=== PATIENT | male | born 1950 | race Caucasian/White ===

== ENCOUNTER 2020-04-11 17:52 | Emergency (ER) | payer MEDICARE ==
[2020-04-11] MEDS ORDERED: Diphtheria,Pertussis(Acell),Tetanus Vaccine 0.5 ML Syringe IM ONE (19:10)
[2020-04-11] MEDS ORDERED: Bacitracin Oint 1 GM U/D Packet TOP ONE (19:27)
--- NOTE | 2020-04-11 19:32 | EDM.PDOC ---
ED HPI GENERAL MEDICAL PROBLEM - General Chief Complaint: Laceration Stated Complaint: CUT TO TOP OF LT HAND Time Seen by Provider: 04/11/20 19:07 Source of Information: Reports: Patient - History of Present Illness INITIAL COMMENTS - FREE TEXT/NARRATIVE: Maurizio is a 69-year-old male presenting to the ED for evaluation of a laceration to his left index finger. The patient was cutting a zip tie underneath his truck using a razor box machine operator. The box machine operator slipped causing him to incise the medial aspect of the proximal index on the left hand. The laceration is about 3.3 cm long. It spared the extensor and flexor tendon, neurovascular bundle, or other deep structures. The patient is out of date for his tetanus status. Location: Reports: Upper Extremity, Left - Related Data Allergies Allergy/AdvReac Type Severity Reaction Status Date / Time adalimumab [From Humira] Allergy Chest Verified 04/11/20 18:30 Tightness apremilast [From Otezla] Allergy Diarrhea Verified 04/11/20 18:30 ibrutinib [From Imbruvica] Allergy Chest Verified 04/11/20 18:30 Tightness Penicillins Allergy Hives Verified 04/11/20 18:30 Home Meds: Home Meds Methotrexate 1 injection SUBCUT WEEKLY 04/11/20 [History] Metoprolol Succinate 1 tab PO DAILY 04/11/20 [History] Rasagiline Mesylate 1 tab PO DAILY 04/11/20 [History] amLODIPine Besylate [Amlodipine Besylate] 1 tab PO DAILY 04/11/20 [History] atorvaSTATin [Lipitor] 1 tab PO DAILY 04/11/20 [History] predniSONE [Prednisone] 1 tab PO DAILY 04/11/20 [History] Past Medical History Musculoskeletal History: Reports: RA Neurological History: Reports: Parkinson's, Seizure Endocrine/Metabolic History: Reports: Diabetes, Type II - Past Surgical History Musculoskeletal Surgical History: Reports: Knee Replacement Social & Family History - Tobacco Use Tobacco Use Status *Q: Never Tobacco User ED ROS GENERAL - Review of Systems Review Of Systems: See Below Constitutional: Reports: No Symptoms HEENT: Reports: No Symptoms Respiratory: Reports: No Symptoms Cardiovascular: Reports: No Symptoms Endocrine: Reports: No Symptoms GI/Abdominal: Reports: No Symptoms : Reports: No Symptoms Musculoskeletal: Reports: Hand Pain (3.3 cm laceration on the left proximal medial index finger) Skin: Reports: Wound (Laceration on the proximal left medial index finger) Neurological: Reports: No Symptoms Psychiatric: Reports: No Symptoms Hematologic/Lymphatic: Reports: No Symptoms Immunologic: Reports: No Symptoms ED EXAM, SKIN/RASH Exam: See Below Exam Limited By: No Limitations General Appearance: Alert, WD/WN, No Apparent Distress Peripheral Pulses: 2+: Radial (L) Extremities: Normal Range of Motion, Non-Tender, No Pedal Edema, Normal Capillary Refill, Other (3.3 cm laceration on the left proximal medial index finger with good distal sensation and capillary refill.) Neurological: Alert, Oriented, Normal Cognition, No Motor/Sensory Deficits Psychiatric: Normal Affect, Normal Mood ED SKIN PROCEDURES - Laceration/Wound Repair Left Medial Proximal Digit - 2nd (Index) Appearance: Subcutaneous, Clean Distal NVT: Neuro & Vascular Intact, No Tendon Injury Anesthetic Type: Local Local Anesthesia - Lidocaine (Xylocaine): 1% Plain Local Anesthetic Volume: 2cc Skin Prep: Other (Sterile water) Exploration/Debridement/Repair: Wound Explored, In a Bloodless Field, Explored to Base Closed with: Sutures Lac/Wound length In cm: 3.3 Suture Size: 4-0 # of Sutures: 6 Suture Type: Interrupted Drain Placement: No Sterile Dressing Applied: Nurse Tetanus Status Addressed: Yes Complications: No Course - Vital Signs Last Recorded V/S: Last Vital Signs Temp 35.8 C L 04/11/20 18:42 Pulse 77 04/11/20 18:42 Resp 16 04/11/20 18:42 BP 183/94 H 04/11/20 18:42 Pulse Ox 95 04/11/20 18:42 - Orders/Labs/Meds Orders: Active Orders 24 hr Category Date Time Status Vaccines to be Administered [RC] PER UNIT ROUTINE Care 04/11/20 19:10 Active Bacitracin [Bacitracin Oint 1 GM] Med 04/11/20 19:27 Once 1 dose TOP ONETIME ONE Medication Orders Bacitracin (Bacitracin Oint 1 Gm) 1 dose TOP ONETIME ONE Stop: 04/11/20 19:28 Meds: Medications Generic Name Dose Route Start Last Admin Trade Name Freq PRN Reason Stop Dose Admin Bacitracin 1 dose 04/11/20 19:27 Bacitracin Oint 1 Gm TOP 04/11/20 19:28 ONETIME ONE Discontinued Medications Generic Name Dose Route Start Last Admin Trade Name Ana PRN Reason Stop Dose Admin Diphtheria/Tetanus/Acell Pertussis 0.5 ml 04/11/20 19:10 Boostrix IM 04/11/20 19:11 .ONCE ONE Lidocaine HCl 5 ml 04/11/20 19:10 Xylocaine-Mpf 1% INJECT 04/11/20 19:11 ONETIME ONE Departure - Departure Time of Disposition: 19:33 Disposition: Home, Self-Care 01 Condition: Good Clinical Impression: Laceration of left index finger - Discharge Information *PRESCRIPTION DRUG MONITORING PROGRAM REVIEWED*: Not Applicable *COPY OF PRESCRIPTION DRUG MONITORING REPORT IN PATIENT BURT: Not Applicable Instructions: Laceration Care, Adult, Sutures, [place], or Adhesive Wound Closure, [id number] Referrals: Jerrod Lopez MD [Primary Care Provider] - Care Plan Goals: The sutures will need to be removed in 10 days. If there is any sign of infection that begins please return to the ED or your primary care provider to initiate antibiotics. Please keep the wound clean, dry, and covered especially when working around areas where it can be soiled. Sepsis Event Note (ED) - Evaluation Sepsis Screening Result: No Definite Risk - Focused Exam Vital Signs: Vital Signs Temp Pulse Resp BP Pulse Ox 04/11/20 18:42 35.8 C L 77 16 183/94 H 95 04/11/20 18:23 35.8 C L 77 16 183/94 H 95 - Problem List & Annotations (1) Laceration of left index finger SNOMED Code(s): 84030278201455559 Code(s): S61.211A - LACERATION W/O FB OF L IDX FNGR W/O DAMAGE TO NAIL, INIT Status: Acute Priority: Medium Current Visit: Yes Qualifiers: Encounter type: initial encounter Damage to nail status: without damage Foreign body presence: without foreign body Qualified Code(s): S61.211A - Laceration without foreign body of left index finger without damage to nail, initial encounter - Problem List Review Problem List Initiated/Reviewed/Updated: Yes - My Orders Last 24 Hours: My Active Orders 04/11/20 19:10 Vaccines to be Administered [RC] PER UNIT ROUTINE 04/11/20 19:27 Bacitracin [Bacitracin Oint 1 GM] 1 dose TOP ONETIME ONE - Assessment/Plan Last 24 Hours: My Active Orders 04/11/20 19:10 Vaccines to be Administered [RC] PER UNIT ROUTINE 04/11/20 19:27 Bacitracin [Bacitracin Oint 1 GM] 1 dose TOP ONETIME ONE
== END 2020-04-11 19:41 | disposition home or self-care (01) ==
LOC: JP.ED 17:52
DX: S61.211A Laceration without foreign body of left index finger without damage to nail, initial encounter (principal); G20 Parkinson's disease; E11.9 Type 2 diabetes mellitus without complications; Z88.0 Allergy status to penicillin; Z23 Encounter for immunization; Z88.8 Allergy status to other drugs, medicaments and biological substances; Z79.899 Other long term (current) drug therapy; W27.8XXA Contact with other nonpowered hand tool, initial encounter
CPT/HCPCS: 12002; 90715; 99282; J2001